=== PATIENT | female | born 1985 | race Hispanic/Latino ===

== ENCOUNTER 2020-07-07 10:52 | Observation (INO) | payer BC ==
--- NOTE | 2020-07-07 10:56 | Event Note ---
ED Screening Note Date of service: 07/07/20 Time: 10:56 ED Screening Note: Patient states and here from urgent care for dislocated left shoulder States she injured her shoulder 2 weeks ago This initial assessment/diagnostic orders/clinical plan/treatment(s) is/are subject to change based on patients health status, clinical progression and re- assessment by fellow clinical providers in the ED. Further treatment and workup at subsequent clinical providers discretion. Patient/guardian urged not to elope from the ED as their condition may be serious if not clinically assessed and managed. Initial orders include: Main ED X-ray
[2020-07-07] MEDS ORDERED: SODIUM CHLORIDE 0.9% 1000 ML 1,000 ML IV ONE (11:55)
[2020-07-07] MEDS ORDERED: KETAMINE 500 MG/5 ML VIAL MDV IV ONE ×2 (11:55→16:22)
[2020-07-07] MEDS ORDERED: propofoL 200 MG/20 ML VIAL IV ONE ×2 (11:55→16:20)
--- NOTE | 2020-07-07 11:59 | Emergency Department Report ---
HPI - General Chief Complaint: Shoulder Injury Time Seen by Provider: 07/07/20 10:54 - HPI HPI: This is a 34-year-old female presents to the emergency department with a complaint of left shoulder pain and concern for a shoulder dislocation. The patient left for work 1 morning about 2 weeks ago and it was dark and the patient says that she tripped on something in her living room and fell onto her left shoulder. She has been walking around with her arm any sling/shoulder immobilizer. Today, the patient went into an urgent care for evaluation and was sent here for x-rays and concern for the dislocation. She is left-hand dominant. She has not taken anything for her symptoms prior to presentation. She last ate anything yesterday afternoon. Her only past medical history is open heart surgery as a child to fix a "hole in my heart." She says that the pain is currently 5 out of 10 in intensity but goes up to an 10 when she tries to move it. Decreased range of motion secondary to pain. ED Past Medical Hx - Past Medical History Previous Medical History?: No - Surgical History Past Surgical History?: Yes Additional Surgical History: Open heart as a child "hole in heart." ED Review of Systems ROS: Stated complaint: LT SHOULDER Other details as noted in HPI Comment: All other systems reviewed and negative Constitutional: denies: chills, fever Respiratory: denies: shortness of breath Cardiovascular: denies: chest pain Gastrointestinal: denies: abdominal pain Musculoskeletal: arthralgia, myalgia Neurological: denies: numbness, paresthesias Physical Exam - Physical Exam Physical Exam: GENERAL: The patient is well-developed well-nourished. HENT: Normocephalic. Atraumatic. Patient has moist mucous membranes. EYES: Extraocular motions are intact. NECK: Supple. Trachea is midline. CHEST/LUNGS: Clear to auscultation. There is no respiratory distress noted. HEART/CARDIOVASCULAR: Regular. There is no tachycardia. There is no murmur. ABDOMEN: Abdomen is soft, nontender. Patient has normal bowel sounds. Obese habitus. SKIN: Skin is warm and dry. NEURO: The patient is awake, alert, and oriented. The patient is cooperative. The patient has no focal neurologic deficits. Normal speech. MUSCULOSKELETAL: There is tenderness to palpation to the left shoulder. Radial pulse +2/4 and capillary refill less than 2 seconds to the affected left upper extremity. There is decreased range of motion of the left upper extremity secondary to pain at the shoulder. ED Course - Consultations Consultation #1: 07/07/20 14:47 I spoke to the orthopedist on-call, Dr. Mazariegos, regarding the 2-week history of a left shoulder dislocation that I was unable to reduce with moderate sedation. He would like the patient admitted to the hospitalist service and he will consult. - Moderate Sedation Indications: fracture/dislocation redu ASA Class: I Mallampati Airway Score: 1 Preparation: nurse monitoring applied, pulse oximeter, capnometry used, supplemental O2 applied, suction/airway equipment at bedside, IV secured Ketamine: IV Ketamine Dose: 110 IV Propofol Dose (mgs): 160 Complications: none Patient Tolerated Procedure: well Additional Comments: The ketamine and propofol were given in multiple different doses. Initially the patient received ketamine 60 mg and propofol 60 mg. The patient then got another 40 mg of propofol. She then got another 50 mg of ketamine and 60 mg of propofol, as multiple attempts were made to reduce this dislocation with x-rays taken in between attempts. - Orthopedic Joint Reduction Joint #1 Consent Obtained: written consent Time Out Performed: Yes Side: left Joint Reduction Location: shoulder Analgesia: moderate sedation Shoulder Technique Used (if applicable): traction/counter-traction, external rotation Post-Reduction Neuro Exam: intact Post-Reduction Vascular Exam: intact Post Reduction X-Ray Obtained: Yes Post Reduction X-Ray Results: not reduced Splint Applied: Yes Patient Tolerated Procedure: well ED Medical Decision Making - Lab Data Result diagrams: 07/07/20 15:15 - Radiology Data Radiology results: image reviewed interpreted by me: X-ray of the left shoulder shows an anterior dislocation. It was also read by radiology as concern for a Hill-Sachs and Bankart lesion. - Medical Decision Making This patient presents to the emergency department with a complaint of left shoulder pain and suspected dislocation after going to an urgent care. The x- ray done here does show an anterior dislocation and was also read by radiology a s concern for a Hill-Sachs deformity and Bankart lesion. It turns out that the patient's dislocation has been going on for close to 2 weeks. As per the procedure section, I attempted a reduction of the shoulder dislocation after giving the patient moderate sedation. I was unable to reduce the dislocation. The patient remained neurovascularly intact after my attempts at reduction. We continue to monitor and she quickly and easily came out of the moderate sedation back to her normal baseline mentation. I spoke with the orthopedist who will see the patient as a consult and has asked for patient to be admitted to the hospitalist service. Patient has been given multiple doses of IV analgesia. She was accepted for admission by the hospitalist, Dr. Shields. Critical Care Time: No Critical care attestation.: If time is entered above; I have spent that time in minutes in the direct care of this critically ill patient, excluding procedure time. ED Disposition Clinical Impression: Hill Sachs deformity, left Dislocation of left shoulder joint Qualifiers: Encounter type: initial encounter Qualified Code(s): S43.005A - Unspecified dislocation of left shoulder joint, initial encounter Bankart lesion of left shoulder Qualifiers: Encounter type: initial encounter Qualified Code(s): S43.492A - Other sprain of left shoulder joint, initial encounter Hypertension Qualifiers: Hypertension type: essential hypertension Qualified Code(s): I10 - Essential (primary) hypertension Disposition: 09 OP ADMIT IP TO THIS HOSP Is pt being admited?: Yes Condition: Fair Time of Disposition: 14:45
--- NOTE | 2020-07-07 12:25 | XRay Report ---
Left shoulder, 3 views. INDICATION / CLINICAL INFORMATION: states dislocated shoulder COMPARISON: None FINDINGS: BONES / JOINT(S): The left humeral head projects inferomedially to the glenoid, most consistent with an anterior shoulder dislocation. Small ossific fragments present at the inferior aspect of the gleno id, suspected small Bankart fracture. Small Hill-Sachs deformity is also suspected. Left AC joint is intact. SOFT TISSUES: No significant abnormality. ADDITIONAL FINDINGS: None. IMPRESSION: Anterior shoulder dislocation with probable small Hill-Sachs and Bankart fractures. Signer Name: Carlos Andrew MD Signed: 07/07/2020 12:03 PM Workstation Name: [id number]
[2020-07-07] MEDS ORDERED: MORPHINE 4 MG/1 ML INJ IV ONE (14:08)
--- NOTE | 2020-07-07 14:37 | XRay Report ---
LEFT SHOULDER ONE VIEW INDICATION: dislocation. COMPARISON: Earlier today at 1121 hours IMPRESSION: No change in the anterior inferior dislocation at the left glenohumeral joint and chip f racture from the inferior glenoid. Signer Name: Ashvin Barney Jr, MD Signed: 07/07/2020 2:32 PM Workstation Name: [id number]
[2020-07-07] MEDS ORDERED: HYDROmorphone 1 MG/1 ML INJ IV ONE (14:45)
[2020-07-07 16:09] LABS: Basophils # (Auto) 0.1 K/mm3 (0.0-0.1); Basophils % (Auto) 0.4 % (0.0-1.8); Eosinophils # (Auto) 0.1 K/mm3 (0.0-0.4); Eosinophils % (Auto) 0.6 % (0.0-4.3); Hematocrit 34.2 % (30.3-42.9); Hemoglobin 10.5 gm/dl (10.1-14.3); Lymphocytes # (Auto) 1.5 K/mm3 (1.2-5.4); Mean Corpuscular HGB Conc 31 % (30-34); Monocytes # (Auto) 0.8 K/mm3 (0.0-0.8); Monocytes % (Auto) 5.6 % (0.0-7.3); Platelet Count 377 K/mm3 (140-440); Red Blood Count 5.03 M/mm3 (3.65-5.03)
[2020-07-07 16:13] LABS: Mean Corpuscular Volume 68 fl (79-97); Red Cell Distribution Width 20.3 % (13.2-15.2)
[2020-07-07 16:20] LABS: Blood Urea Nitrogen 12 mg/dL (7-17); Calcium 8.9 mg/dL (8.4-10.2); Hemolysis Index 6
--- NOTE | 2020-07-07 16:26 | History and Physical Report ---
History of Present Illness Date of examination: 07/07/20 Date of admission: 07/07/20 14:45 Chief complaint: L shoulder pain History of present illness: This is a 34-year-old female presents to the emergency department with a complaint of left shoulder pain and concern for a shoulder dislocation. The patient left for work 1 morning about 2 weeks ago and it was dark and the patient says that she tripped on something in her living room and fell onto her left shoulder. She has been walking around with her arm any sling/shoulder immobilizer. Today, the patient went into an urgent care for evaluation and was sent here for x-rays and concern for the dislocation. She is left-hand dominant. She has not taken anything for her symptoms prior to presentation. She last ate anything yesterday afternoon. Her only past medical history is open heart surgery as a child to fix a "hole in my heart." She says that the pain is currently 5 out of 10 in intensity but goes up to an 10 when she tries to move it. Decreased range of motion secondary to pain. Shoulder joint peplacement was attempted in ED under sedation and without success--hence admission for reduction under GETA - Past Medical History Previous Medical History?: No - Surgical History Past Surgical History?: Yes Additional Surgical History: Open heart as a child "hole in heart." FH Htn SH n/a Review of Systems ROS: Stated complaint: LT SHOULDER Other details as noted in HPI Comment: All other systems reviewed and negative Constitutional: denies: chills, fever Respiratory: denies: shortness of breath Cardiovascular: denies: chest pain Gastrointestinal: denies: abdominal pain Musculoskeletal: arthralgia, myalgia Neurological: denies: numbness, paresthesias Medications and Allergies Allergies Allergy/AdvReac Type Severity Reaction Status Date / Time No Known Allergies Allergy Unverified 07/07/20 10:57 Active Meds: Active Medications Sodium Chloride (Nacl 0.9% 1000 Ml) 1,000 mls @ 125 mls/hr IV ONCE ONE Stop: 07/07/20 19:54 Last Admin: 07/07/20 13:04 Dose: 125 mls/hr Documented by: Ketamine HCl (Ketalar) 50 mg IV ONCE ONE Stop: 07/07/20 16:23 Propofol (Diprivan 10 Mg/Ml) 180 mg IV ONCE ONE Stop: 07/07/20 16:21 Exam - Constitutional Vitals: Temp Pulse Resp BP Pulse Ox 57 L 22 170/86 100 07/07/20 15:00 07/07/20 15:00 07/07/20 15:00 07/07/20 15:00 General appearance: Present: no acute distress, well-nourished - EENT Eyes: Present: PERRL ENT: hearing intact, clear oral mucosa - Neck Neck: Present: supple, normal ROM - Respiratory Respiratory effort: normal Respiratory: bilateral: CTA - Cardiovascular Heart rate: 78 Rhythm: regular Heart Sounds: Present: S1 & S2. Absent: rub, click - Extremities Extremities: pulses symmetrical, No edema Peripheral Pulses: within normal limits - Abdominal General gastrointestinal: Present: soft, non-tender, non-distended, normal bowel sounds Female genitourinary: Present: normal - Rectal Rectal Exam: deferred - Integumentary Integumentary: Present: clear, warm, dry - Musculoskeletal Musculoskeletal: gait normal, strength equal bilaterally - Psychiatric Psychiatric: appropriate mood/affect, intact judgment & insight - Neurologic Neurologic: CNII-XII intact, moves all extremities - Allied Health Allied health notes reviewed: nursing, case management Results - Labs CBC & Chem 7: 07/07/20 15:15 07/07/20 15:15 Labs: Laboratory Last Values WBC 13.8 K/mm3 (4.5-11.0) H 07/07/20 15:15 RBC 5.03 M/mm3 (3.65-5.03) 07/07/20 15:15 Hgb 10.5 gm/dl (10.1-14.3) 07/07/20 15:15 Hct 34.2 % (30.3-42.9) 07/07/20 15:15 MCV 68 fl (79-97) L 07/07/20 15:15 MCH 21 pg (28-32) L 07/07/20 15:15 MCHC 31 % (30-34) 07/07/20 15:15 RDW 20.3 % (13.2-15.2) H 07/07/20 15:15 Plt Count 377 K/mm3 (140-440) 07/07/20 15:15 Lymph % (Auto) 11.0 % (13.4-35.0) L 07/07/20 15:15 King % (Auto) 5.6 % (0.0-7.3) 07/07/20 15:15 Eos % (Auto) 0.6 % (0.0-4.3) 07/07/20 15:15 Baso % (Auto) 0.4 % (0.0-1.8) 07/07/20 15:15 Lymph # (Auto) 1.5 K/mm3 (1.2-5.4) 07/07/20 15:15 King # (Auto) 0.8 K/mm3 (0.0-0.8) 07/07/20 15:15 Eos # (Auto) 0.1 K/mm3 (0.0-0.4) 07/07/20 15:15 Baso # (Auto) 0.1 K/mm3 (0.0-0.1) 07/07/20 15:15 Seg Neutrophils % 82.4 % (40.0-70.0) H 07/07/20 15:15 Seg Neutrophils # 11.3 K/mm3 (1.8-7.7) H 07/07/20 15:15 Sodium 138 mmol/L (137-145) 07/07/20 15:15 Potassium 3.4 mmol/L (3.6-5.0) L 07/07/20 15:15 Chloride 106.1 mmol/L (98-107) 07/07/20 15:15 Carbon Dioxide 20 mmol/L (22-30) L 07/07/20 15:15 Anion Gap 15 mmol/L 07/07/20 15:15 BUN 12 mg/dL (7-17) 07/07/20 15:15 Glucose 132 mg/dL (65-100) H 07/07/20 15:15 Calcium 8.9 mg/dL (8.4-10.2) 07/07/20 15:15 Short CBC 07/07/20 Range/Units 15:15 WBC 13.8 H (4.5-11.0) K/mm3 Hgb 10.5 (10.1-14.3) gm/dl Hct 34.2 (30.3-42.9) % Plt Count 377 (140-440) K/mm3 BMP 07/07/20 15:15 Sodium 138 Potassium 3.4 L Chloride 106.1 Carbon Dioxide 20 L BUN 12 Creatinine 0.7 Glucose 132 H Calcium 8.9 Garcia/IV: IV Catheter Type [Right INT / Saline Lock Forearm] Assessment and Plan Advance Directives: Yes (FC) - Patient Problems (1) Dislocation of left shoulder joint Current Visit: Yes Status: Acute Qualifiers: Encounter type: initial encounter Qualified Code(s): S43.005A - Unspecified dislocation of left shoulder joint, initial encounter Plan to address problem: Needs reduction under General anesthesia (2) Bankart lesion of left shoulder Current Visit: Yes Status: Acute Qualifiers: Encounter type: initial encounter Qualified Code(s): S43.492A - Other sprain of left shoulder joint, initial encounter Plan to address problem: possible small fracture (3) DVT prophylaxis Current Visit: Yes Status: Acute Plan to address problem: On Heparin
[2020-07-07 16:29] LABS: BUN/Creatinine Ratio 17
[2020-07-07] MEDS ORDERED: propofoL 200 MG/20 ML VIAL IV SCH (17:00)
[2020-07-07] MEDS ORDERED: METOCLOPRAMIDE 10 MG/2 ML INJ IV PRN (17:00)
[2020-07-07] MEDS ORDERED: ONDANSETRON 4 MG/2 ML INJ IV PRN (17:00)
[2020-07-07] MEDS ORDERED: ACETAMINOPHEN 325 MG TAB PO PRN (17:00)
[2020-07-07] MEDS ORDERED: KETAMINE 500 MG/5 ML VIAL MDV IV SCH (17:00)
[2020-07-07] MEDS ORDERED: oxyCODONE /ACETAMINOPHEN 5-325MG TAB PO PRN (17:00)
[2020-07-07] MEDS: HYDROmorphone 1 MG/1 ML INJ IV PRN (21:34)
[2020-07-07] MEDS: FAMOTIDINE 20 MG/2 ML INJ IV SCH (21:34)
[2020-07-08] MEDS: HYDROmorphone 1 MG/1 ML INJ IV PRN (04:42)
[2020-07-08] MEDS ORDERED: POTASSIUM CHLORIDE ER 20 MEQ TAB PO SCH (08:00)
--- NOTE | 2020-07-08 08:35 | Progress Note ---
Assessment and Plan Assessment and plan: (1) Dislocation of left shoulder joint Current Visit: Yes Status: Acute Qualifiers: Encounter type: initial encounter Qualified Code(s): S43.005A - Unspecified dislocation of left shoulder joint, initial encounter Plan to address problem: Needs reduction under General anesthesia (2) Bankart lesion of left shoulder Current Visit: Yes Status: Acute Qualifiers: Encounter type: initial encounter Qualified Code(s): S43.492A - Other sprain of left shoulder joint, initial encounter Plan to address problem: possible small fracture (3) DVT prophylaxis Current Visit: Yes Status: Acute Plan to address problem: On Heparin Disposition; possible discharge after reduction if stable and ok with orthopedic s. History Interval history: Patient was seen and evaluated this morning With mild pain in the left shoulder Hospitalist Physical - Physical exam Narrative exam: Not in cardiopulmonary distress. The patient appeared well nourished and normally developed. Vital signs as documented. Head exam is unremarkable. No scleral icterus . Neck is without jugular venous distension, thyromegaly, or carotid bruits. Lungs are clear to auscultation. Cardiac exam reveals regular rate and Rhythm. Abdominal exam reveals normal bowel sounds, nontender, no organomegaly. Extremities immobilization and sling on the left arm [employer]: Alert and oriented 3. No focal weakness. - Constitutional Vitals: Temp Pulse Resp BP Pulse Ox 97.9 F 70 18 138/71 99 07/08/20 07:11 07/08/20 07:11 07/08/20 07:11 07/08/20 07:11 07/08/20 07:11 General appearance: Present: no acute distress, well-nourished Results - Labs CBC & Chem 7: 07/07/20 15:15 07/07/20 15:15 Labs: Laboratory Last Values WBC 13.8 K/mm3 (4.5-11.0) H 07/07/20 15:15 RBC 5.03 M/mm3 (3.65-5.03) 07/07/20 15:15 Hgb 10.5 gm/dl (10.1-14.3) 07/07/20 15:15 Hct 34.2 % (30.3-42.9) 07/07/20 15:15 MCV 68 fl (79-97) L 07/07/20 15:15 MCH 21 pg (28-32) L 07/07/20 15:15 MCHC 31 % (30-34) 07/07/20 15:15 RDW 20.3 % (13.2-15.2) H 07/07/20 15:15 Plt Count 377 K/mm3 (140-440) 07/07/20 15:15 Lymph % (Auto) 11.0 % (13.4-35.0) L 07/07/20 15:15 Cooper % (Auto) 5.6 % (0.0-7.3) 07/07/20 15:15 Eos % (Auto) 0.6 % (0.0-4.3) 07/07/20 15:15 Baso % (Auto) 0.4 % (0.0-1.8) 07/07/20 15:15 Lymph # (Auto) 1.5 K/mm3 (1.2-5.4) 07/07/20 15:15 Cooper # (Auto) 0.8 K/mm3 (0.0-0.8) 07/07/20 15:15 Eos # (Auto) 0.1 K/mm3 (0.0-0.4) 07/07/20 15:15 Baso # (Auto) 0.1 K/mm3 (0.0-0.1) 07/07/20 15:15 Seg Neutrophils % 82.4 % (40.0-70.0) H 07/07/20 15:15 Seg Neutrophils # 11.3 K/mm3 (1.8-7.7) H 07/07/20 15:15 Sodium 138 mmol/L (137-145) 07/07/20 15:15 Potassium 3.4 mmol/L (3.6-5.0) L 07/07/20 15:15 Chloride 106.1 mmol/L (98-107) 07/07/20 15:15 Carbon Dioxide 20 mmol/L (22-30) L 07/07/20 15:15 Anion Gap 15 mmol/L 07/07/20 15:15 BUN 12 mg/dL (7-17) 07/07/20 15:15 Creatinine 0.7 mg/dL (0.6-1.2) 07/07/20 15:15 Estimated GFR > 60 ml/min 07/07/20 15:15 BUN/Creatinine Ratio 17 % 07/07/20 15:15 Glucose 132 mg/dL (65-100) H 07/07/20 15:15 Hemoglobin A1c 5.0 % (4-6) 07/08/20 06:02 Calcium 8.9 mg/dL (8.4-10.2) 07/07/20 15:15 Garcia/IV: Voiding Method Toilet IV Catheter Type [Right INT / Saline Lock Forearm] Active Medications - Current Medications Current Medications: Generic Name Dose Route Start Last Admin Trade Name Freq PRN Reason Stop Dose Admin Acetaminophen 650 mg 07/07/20 17:00 Tylenol PO Q4H PRN Pain MILD(1-3)/Fever >100.5/LEDESMA Famotidine 20 mg 07/07/20 22:00 07/07/20 21:34 Pepcid IV 20 mg BID DENILSON Administration Hydromorphone HCl 1 mg 07/07/20 17:00 07/08/20 04:42 Dilaudid IV 1 mg Q3H PRN Administration Pain , Severe (7-10) Metoclopramide HCl 10 mg 07/07/20 17:00 07/08/20 04:40 Reglan IV 10 mg Q6H PRN Administration Nausea And Vomiting Ondansetron HCl 4 mg 07/07/20 17:00 Zofran IV Q3H PRN Nausea And Vomiting Oxycodone/Acetaminophen 1 tab 07/07/20 17:00 07/07/20 17:15 Percocet 5/325 PO 1 tab Q6H PRN Administration Pain, Moderate (4-6) Potassium Chloride 40 meq 07/08/20 08:00 K-Dur PO 07/08/20 11:00 ONCE DENILSON Sodium Chloride 10 ml 07/07/20 22:00 07/07/20 21:35 Sodium Chloride Flush Syringe 10 Ml IV 10 ml BID DENILSON Administration Sodium Chloride 10 ml 07/07/20 17:00 Sodium Chloride Flush Syringe 10 Ml IV PRN PRN LINE FLUSH
--- NOTE | 2020-07-08 10:15 | Anesthesia Consultation ---
Anesthesia Consult and Med Hx Date of service: 07/08/20 - Airway Anesthetic Teeth Evaluation: Good ROM Head & Neck: Adequate Mental/Hyoid Distance: Adequate Mallampati Class: Class II Intubation Access Assessment: Probably Good - Pre-Operative Health Status ASA Pre-Surgery Classification: ASA3 Proposed Anesthetic Plan: General - Pulmonary Hx Smoking: Yes (quit 2013) Hx Asthma: No Hx Respiratory Symptoms: No SOB: No COPD: No Home Oxygen Therapy: No Hx Pneumonia: No Hx Sleep Apnea: Yes - Cardiovascular System Hx Hypertension: Yes Hx Coronary Artery Disease: No (pt states "I had open heart surgery as a child for 2 holes in the heart") Hx Heart Attack/AMI: No Hx Angina: No Hx Percutaneous Transluminal Coronary Angioplasty (PTCA): No Hx Cardia Arrhythmia: No Hx Pacemaker: No Hx Internal Defibrillator: No Hx Valvular Heart Disease: No Hx Heart Murmur: No Hx Peripheral Vascular Disease: No - Central Nervous System Hx Neuromuscular Disorder: No Hx Seizures: No CVA: No Hx Back Pain: No Hx Psychiatric Problems: No - Gastrointestinal Hx Ulcer: No Hx Gastroesophageal Reflux Disease: No - Endocrine Hx Renal Disease: No Hx End Stage Renal Disease: No Hx Cirrhosis: No Hx Liver Disease: No Hx Insulin Dependent Diabetes: No Hx Non-Insulin Dependent Diabetes: No Hx Thyroid Disease: No Hx Hypothyroidism: No Hx Hyperthyroidism: No - Hematic Hx Anemia: No Hx Sickle Cell Disease: No - Other Systems Hx Alcohol Use: No Hx Substance Use: No Hx Cancer: No Hx Obesity: Yes
--- NOTE | 2020-07-08 10:16 | Anesthesia Day of Surgery ---
Anesthesia Day of Surgery - Day of Surgery Patient Examined: Yes Patient H&P Reviewed: Yes Patient is NPO: Yes
[2020-07-08] MEDS ORDERED: LACTATED RINGERS 1,000 ML ONE (12:30)
[2020-07-08] MEDS ORDERED: MIDAZOLAM 2 MG/2 ML INJ ONE ×2 (12:38→13:17)
[2020-07-08] MEDS ORDERED: propofoL 200 MG/20 ML VIAL IV ONE ×2 (12:38→12:50)
[2020-07-08] MEDS ORDERED: ONDANSETRON 4 MG/2 ML INJ ONE (12:39)
[2020-07-08] MEDS ORDERED: LIDOCAINE MPF (2%) 20 MG/1 ML VIAL 5 ML ONE (12:39)
[2020-07-08] MEDS ORDERED: fentaNYL 100 MCG/2 ML INJ ONE (12:41)
[2020-07-08] MEDS ORDERED: dexAMETHasone 20 MG/5 ML VIAL ONE (13:00)
[2020-07-08] MEDS ORDERED: LACTATED RINGERS 1,000 ML IV SCH (13:00)
[2020-07-08] MEDS ORDERED: KETOROLAC 30 MG/1 ML INJ ONE (13:16)
[2020-07-08] MEDS ORDERED: SUCCINYLCHOLINE CHLORIDE 200 MG/10 ML INJ MDV ONE (13:18)
--- NOTE | 2020-07-08 13:34 | Consultation ---
History of Present Illness - HPI Consult date: 07/08/20 Consult reason: joint pain History of present illness: 34 y/o female with c/o left shoulder pain after injury couple wks ago, thought just sprained but symptoms persisted and when seen in the ED plain xrays done r evealed dislocated left glenohumeral joint, multiple attemts in the ED unsuccessful... Medications and Allergies Allergies Allergy/AdvReac Type Severity Reaction Status Date / Time No Known Allergies Allergy Unverified 07/07/20 10:57 Active Meds: Active Medications Acetaminophen (Tylenol) 650 mg PO Q4H PRN PRN Reason: Pain MILD(1-3)/Fever >100.5/LEDESMA Famotidine (Pepcid) 20 mg IV BID [facility] Last Admin: 07/07/20 21:34 Dose: 20 mg Documented by: Hydromorphone HCl (Dilaudid) 1 mg IV Q3H PRN PRN Reason: Pain , Severe (7-10) Last Admin: 07/08/20 04:42 Dose: 1 mg Documented by: Lactated Ringer's (Lactated Ringers) 1,000 mls @ 100 mls/hr IV DIRECT [facility] Metoclopramide HCl (Reglan) 10 mg IV Q6H PRN PRN Reason: Nausea And Vomiting Last Admin: 07/08/20 04:40 Dose: 10 mg Documented by: Ondansetron HCl (Zofran) 4 mg IV Q3H PRN PRN Reason: Nausea And Vomiting Oxycodone/Acetaminophen (Percocet 5/325) 1 tab PO Q6H PRN PRN Reason: Pain, Moderate (4-6) Last Admin: 07/07/20 17:15 Dose: 1 tab Documented by: Sodium Chloride (Sodium Chloride Flush Syringe 10 Ml) 10 ml IV BID [facility] Last Admin: 07/07/20 21:35 Dose: 10 ml Documented by: Sodium Chloride (Sodium Chloride Flush Syringe 10 Ml) 10 ml IV PRN PRN PRN Reason: LINE FLUSH Physical Examination - Physical exam Narrative exam: left shoulder - + sulcus sign, decreased AROM, tender on passive ROM Eyes: PERRL ENT: Positive: clear oral mucosa Respiratory effort: normal Respiratory: bilateral: CTA Rhythm: regular Heart Sounds: Positive: S1 & S2 General gastrointestinal: Positive: soft, non-tender, non-distended, normal bowel sounds Integumentary: clear, warm, dry Neurologic: Positive: CNII-XII intact, moves all extremities, gait normal. Negative: focal deficits - Cervical Spine Neck pain: none Tenderness with palpation: none Full ROM: yes ROM: flexion: normal ROM: extension: normal ROM: rotation right: normal ROM: rotation left: normal ROM: lateral flexion right: normal ROM: lateral flexion left: normal - Lumbar Spine Back pain: none Tenderness with palpation: none Appearance: normal Full ROM: yes ROM: flexion: normal ROM: extension: normal ROM: rotation right: normal ROM: rotation left: normal ROM: lateral flexion right: normal ROM: lateral flexion left: normal Assessment and Plan anterior shoulder dislocation 2 wk-old will require closed reduction under general anesthesia
--- NOTE | 2020-07-08 13:37 | Procedure Note ---
Date of procedure: 07/08/20 Pre-op diagnosis: 2-week-old left anterior shoulder dislocation Post-op diagnosis: same Procedure: Left anterior shoulder dislocation Procedure Patient was brought to the OR on the hospital bed she was then requested to transfer onto the OR table following this patient was given IV sedation with propofol. A routine timeout procedure was done to identify the patient and the correct operative site.. Using traction countertraction the left upper extremity was then placed in longitudinal traction with the elbow flexed at 90 degrees with a sheet underneath the patient's left axilla countertraction was applied by our academic assistant following careful controlled manipulation of the left arm a palpable and audible clunk was seen next C arm fluoroscope was brought in the shoulder appeared to be reduced next year she was placed in a shoulder immobilizer and a follow-up x-ray was performed again showing good reduction of the glenohumeral joint. Patient was then awakened and was taken to postanesthesia recovery in a stable condition Anesthesia: MAC, other (IV sedation with propofol) Surgeon: JANELLE PACK Estimated blood loss: none Pathology: none Condition: stable Disposition: PACU
[2020-07-08] MEDS ORDERED: HYDROmorphone 1 MG/1 ML INJ IV PRN (13:45)
--- NOTE | 2020-07-08 14:00 | Discharge Summary ---
Providers - Providers Date of Admission: 07/07/20 14:45 Date of discharge: 07/08/20 Attending physician: COLUMBA CARRASCO MD 07/07/20 14:43 Consult to Physician [CONS] Routine Comment: Consulting Provider: JANELLE PACK Physician Instructions: Reason For Exam: left shoulder dislocation x 2 weeks Primary care physician: SPACE SCIENCES DIRECTOR Hospitalization Reason for admission: Left shoulder dislocation Condition: Stable Pertinent studies: Left shoulder x-ray Procedures: Closed reduction of dislocated left shoulder Hospital course: This is a 34-year-old female presents to the emergency department with a complaint of left shoulder pain and concern for a shoulder dislocation. The patient left for work 1 morning about 2 weeks ago and it was dark and the patient says that she tripped on something in her living room and fell onto her left shoulder. She has been walking around with her arm any sling/shoulder immobilizer. Today, the patient went into an urgent care for evaluation and was sent here for x-rays and concern for the dislocation. She is left-hand dominant. She has not taken anything for her symptoms prior to presentation. She last ate anything yesterday afternoon. Her only past medical history is open heart surgery as a child to fix a "hole in my heart." She says that the pain is currently 5 out of 10 in intensity but goes up to an 10 when she tries to move it. Decreased range of motion secondary to pain. Shoulder joint peplacement was attempted in ED under sedation and without success--hence admission for reduction under GETA. Patient was admitted to the floor and was seen by orthopedics and patient had closed reduction of the left shoulder with c- arm under general anesthesia. Patient was doing well after the procedure. She did not have any pain. Patient advised to Disposition: TO HOME OR SELFCARE Time spent for discharge: 32-minutes - Discharge Diagnoses (1) Bankart lesion of left shoulder Status: Acute Qualifiers: Encounter type: initial encounter Qualified Code(s): S43.492A - Other sprain of left shoulder joint, initial encounter (2) Dislocation of left shoulder joint Status: Acute Qualifiers: Encounter type: initial encounter Qualified Code(s): S43.005A - Unspecified dislocation of left shoulder joint, initial encounter (3) Hill Sachs deformity, left Status: Acute (4) Hypertension Status: Acute Qualifiers: Hypertension type: essential hypertension Qualified Code(s): I10 - Essential (primary) hypertension Core Measure Documentation - Palliative Care Palliative Care/ Comfort Measures: Not Applicable - Core Measures Any of the following diagnoses?: none Exam - Physical Exam Narrative exam: Not in cardiopulmonary distress. The patient appeared well nourished and normally developed. Vital signs as documented. Head exam is unremarkable. No scleral icterus . Neck is without jugular venous distension, thyromegaly, or carotid bruits. Lungs are clear to auscultation. Cardiac exam reveals regular rate and Rhythm. Abdominal exam reveals normal bowel sounds, nontender, no organomegaly. 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 No focal weakness. - Constitutional Vitals: Temp Pulse Resp BP Pulse Ox 98.4 F 93 H 18 175/113 100 07/08/20 12:15 07/08/20 12:15 07/08/20 12:15 07/08/20 12:15 07/08/20 12:15 Plan Activity: other (Shoulder rest for 2 weeks) Weight Bearing Status: Full Weight Bearing Diet: regular Follow up with: PRIMARY MD PRAVIN [Primary Care Provider] - 3-5 Days
--- NOTE | 2020-07-08 14:34 | Post Anesthesia Evaluation ---
- Post Anesthesia Evaluation Patient Participated: Yes Airway Patent: Yes Stable Respiratory Function: Yes Nausea/Vomiting: No Temp > 96.8F: Yes Pain Manageable: Yes Adequeate Hydration: Yes Anesthesia Complications: No Block Receding Appropriately: Not Applicable Patient on Ventilator: No
[2020-07-08 14:46] VITALS: BP 155/78
[2020-07-08] MEDS: FAMOTIDINE 20 MG/2 ML INJ IV SCH (15:24)
--- NOTE | 2020-07-08 15:25 | XRay Report ---
XR SHOULDER 1V LT INDICATION / CLINICAL INFORMATION: CLOSED REDUCTION LT SHOULDER. COMPARISON: Yesterday. FINDINGS: The initial image demonstrates inferior dislocation of the humeral head in relationship to the glenoi d. There is a fracture fragment along the lateral aspect of the humeral head. The second image demons trates interval reduction of the dislocation with the humeral head well situated within the glenoid f chari. A fracture fragment along the lateral aspect of the humeral head is again noted. Fluoroscopy time: 13 seconds. Fluoroscopic images: 2. Signer Name: Jordan Castillo MD Signed: 07/08/2020 3:24 PM Workstation Name: [id number]
== END 2020-07-08 18:30 | disposition home or self-care (01) ==
LOC: ED 10:52 → 3A 14:45 → 3B-SURG 15:30
PROVIDERS: ADMIT Internal Medicine; ATTEND Internal Medicine
DX: S43.035A Inferior dislocation of left humerus, initial encounter (principal); S43.492A Other sprain of left shoulder joint, initial encounter; M21.822 Other specified acquired deformities of left upper arm; I10 Essential (primary) hypertension; Z98.890 Other specified postprocedural states; W01.0XXA Fall on same level from slipping, tripping and stumbling without subsequent striking against object, initial encounter; Y93.01 Activity, walking, marching and hiking; Y92.098 Other place in other non-institutional residence as the place of occurrence of the external cause; Y99.8 Other external cause status
CPT/HCPCS: 23650; 36415; 73020; 73030; 80048; 83036; 85025; 96374; 96375; 96376; 99284; G0378; J0330; J1170; J1885; J2250; J2270; J2405; J2704; J2765; J3010; J7030; J1100; J7120

== ENCOUNTER 2020-07-15 11:25 | Outpatient (CLI) | payer BC ==
--- NOTE | 2020-07-15 12:34 | XRay Report ---
LEFT SHOULDER 2 VIEWS INDICATION: LEFT SHOULDER PAIN. COMPARISON: 07/07/2020 IMPRESSION: Limited images. The humeral head is subluxed inferiorly compared to the glenoid which pr obably represents a large joint effusion or laxity of the joint capsule. No complete dislocation. The re are multiple small bony fragments lateral to the humeral head consistent with chip fractures which are unchanged. The scapula and clavicle are intact. No significant degenerative changes. Signer Name: Ashvin Barney Jr, MD Signed: 07/15/2020 12:29 PM Workstation Name: [id number]
== END 2020-07-15 11:26 | disposition home or self-care (01) ==
LOC: XRAY 11:25
PROVIDERS: ATTEND Orthopaedic Surgery
DX: S43.085A Other dislocation of left shoulder joint, initial encounter (principal); X58.XXXA Exposure to other specified factors, initial encounter; Y93.89 Activity, other specified; Y92.89 Other specified places as the place of occurrence of the external cause; Y99.8 Other external cause status

== ENCOUNTER 2020-08-04 10:53 | Outpatient (CLI) | payer OTHER ==
--- NOTE | 2020-08-04 13:21 | XRay Report ---
LEFT SHOULDER 3 VIEW(S) INDICATION / CLINICAL INFORMATION: LEFT SHOULDER PAIN COMPARISON: 07/15/2020 FINDINGS: BONES / JOINT(S): Overall unchanged appearance of the glenoid humeral joint with compared to 07/15/20 20 with moderate inferior subluxation of the humeral head with increased attenuation in the glenohume ral joint space likely representing large effusion. No evidence of berta dislocation. Multiple small ossific fragments at the superolateral humeral head suggest remote chip fractures. Scapula and clavic le are intact. No significant degenerative change. SOFT TISSUES: Mild soft tissue edema. ADDITIONAL FINDINGS: None. Signer Name: Jordan Persaud MD Signed: 08/04/2020 1:16 PM Workstation Name: [id number]
== END 2020-08-04 10:54 | disposition home or self-care (01) ==
LOC: XRAY 10:53
PROVIDERS: ATTEND Orthopaedic Surgery
DX: S43.085A Other dislocation of left shoulder joint, initial encounter (principal); X58.XXXA Exposure to other specified factors, initial encounter; Y93.89 Activity, other specified; Y92.89 Other specified places as the place of occurrence of the external cause; Y99.8 Other external cause status

== ENCOUNTER 2020-09-03 09:08 | Outpatient (CLI) | payer BC ==
--- NOTE | 2020-09-03 13:19 | Magnetic Resonance Report ---
MRI LEFT SHOULDER WITHOUT CONTRAST INDICATION / CLINICAL INFORMATION: LEFT SHOULDER PAIN. TECHNIQUE: Multiplanar, multisequence MR images were obtained. No contrast used. COMPARISON: Radiographs 08/04/2020 FINDINGS: SUPRASPINATUS: Tendinitis, this may be reactive. No discrete tear is seen. INFRASPINATUS: No significant abnormality. SUBSCAPULARIS: No significant abnormality. BICEPS TENDON, LONG HEAD: No significant abnormality. GLENOID LABRUM: Evaluate is limited due to lack of intra-articular contrast. No discrete tear is visu alized ARTICULAR CARTILAGE: No full-thickness cartilage defects. JOINT SPACE AND CAPSULE: Within the posterior superior joint space is 1.3 cm low T1/low T2 signal foc us. (Axial image 9). ACROMION and A.C. JOINT: No significant abnormality. SUBACROMIAL/SUBDELTOID SPACE: No significant abnormality. BONES: Subacute Hill-Sachs fracture is seen at the greater tuberosity. No osseous lesion. SOFT TISSUES: No significant abnormality. ADDITIONAL FINDINGS: None. IMPRESSION: 1. Subacute Hill-Sachs impaction type fracture at the greater tuberosity. This appears somewhat commi nuted and fracture fragments are not united/healed. 2. Within the limitations of nonarthrographic technique, no labral tear is seen; however, due to the history of dislocation and the Hill-Sachs fracture, I suspect that there is a soft tissue Bankart inj ury at the anterior inferior glenoid labrum. 3. 1.3 cm low signal focus in the posterior superior joint space. While this could be a displaced fra cture fragment, chondrolabral fragment, or blood products related to prior hemarthrosis could have th is appearance. 4. No definite rotator cuff tendon tear is seen. Anterior fibers of the distal supraspinatus are richard ched to a couple of the anterior greater tuberosity fracture fragments which are slightly displaced. Signer Name: Merrill Garrison MD Signed: 09/03/2020 1:15 PM Workstation Name: [email or web address]
== END 2020-09-03 09:09 | disposition home or self-care (01) ==
LOC: MRI 09:08
PROVIDERS: ATTEND Orthopaedic Surgery
DX: S43.035A Inferior dislocation of left humerus, initial encounter (principal); S43.085A Other dislocation of left shoulder joint, initial encounter; M75.22 Bicipital tendinitis, left shoulder; X58.XXXA Exposure to other specified factors, initial encounter; Y93.89 Activity, other specified; Y92.89 Other specified places as the place of occurrence of the external cause; Y99.8 Other external cause status